=== PATIENT | male | born 1970 | race Caucasian/White ===

== ENCOUNTER 2021-04-14 08:11 | Outpatient (CLI) | payer OTHER, SELFPAY ==
--- NOTE | ~2021-04-14 | CT_ITS ---
EXAMINATION: CT abdomen pelvis wo con EXAM DATE: 04/14/2021 08:32 INDICATION: Left upper quadrant, epigastric pain.. TECHNIQUE: Spiral CT of the abdomen and pelvis was performed without contrast. Axial, coronal and s agittal images of the abdomen and pelvis were reviewed. The dose-length product (DLP) for this exami [facility] was 1197.48 mGy-cm. The exposure was tailored according to patient size (auto mA exposure con trol), and iterative reconstruction (ASIR) was used as additional dose reduction technique. There is no prior study for comparison. FINDINGS: There is a right liver lobe cyst inferiorly measuring 1.3 cm. The liver, spleen, adrenal g lands and pancreas are unremarkable. Gallbladder is unremarkable. No biliary obstruction. There is no nephrolithiasis or hydronephrosis. The prostate is unremarkable. Small left inguinal fat-contai fela hernia. The bladder is unremarkable. There is no retroperitoneal or pelvic lymphadenopathy. 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 The appendix is normal. The stomach and small bowel are unremarkable. There is expected amount of c olonic stool. No free intraperitoneal gas. The heart is normal in size. There are no pericardial or pleural effusions. The lung bases are unremarkable. There are no osteoblastic or osteolytic les ions identified. IMPRESSION: 1. No acute intra-abdominal findings. Reviewed, dictated and finalized at location G. [facility]
== END 2021-04-14 08:12 ==
LOC: MICIMG 08:12
PROVIDERS: PCP Internal Medicine; Visit Provider Internal Medicine
DX: R10.9 Unspecified abdominal pain (principal)
CPT/HCPCS: 74176

== ENCOUNTER 2024-05-17 15:10 | Outpatient (CLI) | payer OTHER, SELFPAY ==
--- NOTE | ~2024-05-17 | MR_ITS ---
MRI of the lumbar spine Clinical History: Spinal stenosis Technique: Axial T2-weighted images, and sagittal T1-weighted, T2-weighted, and and T2 fat-sat images were acquired. Findings: There is no fracture or subluxation of the lumbar spine. Vertebral bodies maintain normal h eight and alignment. No bone marrow signal abnormality seen. At L1-L2, there is no disc bulge or herniation. There is minimal facet hypertrophy. No central canal stenosis or neural foraminal narrowing. At L2-L3, there is no disc bulge or herniation. There is mild facet arthropathy. No central canal henry nosis or neural foraminal narrowing. L3-L4, there is no disc bulge or herniation. There is mild facet arthropathy. No central canal stenos is or neural foraminal narrowing. At L4-L5, there is no disc bulge or herniation. There is mild to moderate facet arthropathy. No centr al canal stenosis or neural foraminal narrowing. At L5-S1, there is no disc bulge or herniation. There is mild facet arthropathy. No central canal henry nosis or neural foraminal narrowing. Paravertebral soft tissues are unremarkable. Impression: Minimal degenerative change, as above. Reviewed, dictated and finalized at location M. Impression: Minimal degenerative change, as above.
== END 2024-05-17 15:11 | disposition home or self-care (01) ==
LOC: MICIMG 15:12
PROVIDERS: PCP Internal Medicine; Visit Provider Internal Medicine
DX: M48.062 Spinal stenosis, lumbar region with neurogenic claudication (principal)
CPT/HCPCS: 72148